=== PATIENT | female | born 1960 | race Caucasian/White ===

== ENCOUNTER 2023-01-16 14:10 | Outpatient (OUT) | payer OTHER, SELFPAY ==
[2023-01-16 15:09] LABS: Estimated Average Glucose 146 mg/dL; Glycohemoglobin A1C 6.7 % (4.5-6.2)
[2023-01-16 15:18] LABS: Hematocrit 37.6 % (36.0-48.0); Hemoglobin 11.4 g/dL (12.0-16.0); Mean Corpuscular HGB Conc 30.3 g/dL (29.9-35.2); Mean Corpuscular Hemoglobin 29.5 pg (26.7-34.0); Mean Corpuscular Volume 97.2 fL (81.0-99.0); Mean Platelet Volume 11.4 fL (9.5-13.5); Platelet Count 196 10^3/uL (150-450); Red Blood Count 3.87 10^6/uL (4.20-5.40); Red Cell Distribution Width 13.6 % (11.0-15.0)
[2023-01-16 15:43] LABS: Alanine Aminotransferase 23 U/L (14-59); Albumin Globulin Ratio 0.8; Albumin Level 3.3 g/dL (3.4-5.0); Alkaline Phosphatase 109 U/L (46-116); Aspartate Amino Transferase 23 U/L (15-37); Bilirubin Total 0.5 mg/dL (0.2-1.0); Calcium 9.3 mg/dL (8.5-10.1); Carbon Dioxide 28.1 mmol/L (21.0-32.0); Chloride 102 mmol/L (98-107); Chol HDL Ratio 4.5; Cholesterol 232 mg/dL (<=200); Estimated GFR (African America >60 (>=60); Estimated GFR (Non-African Ame >60 (>=60); Globulin 4.3 g/dL; Glucose 118 mg/dL (74-106); HDL Cholesterol 52 mg/dL (40-60); Potassium 5.1 mmol/L (3.5-5.1); Sodium 139 mmol/L (136-145); Thyroid Stimulating Hormone 1.066 uIU/mL (0.358-3.740); Total Protein 7.6 g/dL (6.4-8.2); Triglycerides 342 mg/dL (<=150); VLDL CHOLESTEROL 68.4 mg/dL
[2023-01-16 15:49] LABS: Free T4 1.04 ng/dL (0.76-1.46)
[2023-01-17 06:08] LABS: HCV Ab Non Reactive (Non Reactive); HIV Ab/p24 Ag Screen Non Reactive (Non Reactive)
== END 2023-01-16 14:11 | disposition home or self-care (01) ==
LOC: LAB 14:16
PROVIDERS: PCP Nurse Practitioner Primary Care; Visit Provider Nurse Practitioner Primary Care
DX: Z00.00 Encounter for general adult medical examination without abnormal findings (principal); Z11.59 Encounter for screening for other viral diseases; Z13.6 Encounter for screening for cardiovascular disorders; Z11.4 Encounter for screening for human immunodeficiency virus [HIV]; Z13.29 Encounter for screening for other suspected endocrine disorder
CPT/HCPCS: 36415; 80053; 80061; 83036; 84439; 84443; 85027; 86803; 87389

== ENCOUNTER 2023-03-23 10:03 | Emergency (ER) | payer OTHER, SELFPAY ==
[2023-03-23 10:07] VITALS: BP 201/98; PULSE 91; RESP 22; TEMP 36.7; O2SAT 98; BMI 43.7
--- OUTSIDE RECORDS SUMMARY | 2023-03-23 10:11 | XMS_ITS | CCD ---
Author Name Unknown Address [address] [place] [address] Organization [facility] Care Team Providers Care Bag Hanger Name Role Phone WING BASHAR M Referring Unavailable KAHALEH, BASHAR M Referring Unavailable ALTATTAN, MOHAMED Attending Unavailable EKATERINA LLANOS Referring Unavailable KAHALEH, BASHAR M Referring Unavailable KAHALEH, BASHAR M Referring Unavailable KAHALEH, BASHAR M Referring Unavailable KAHALEH, BASHAR M Referring Unavailable ALTATTAN, MOHAMED Attending Unavailable Allergies Allergy Classification Reported Allergen(s) Allergy Type Date of Onset Reaction(s) Facility (1 source) ALLERGIES NOT ON FILE; Translations: [ALLERGIES NOT ON FILE] Propensity to adverse reactions (disorder) [facility] Repository Problems Active Problems Problem Classification Problem Date Documented Da te Episodic/Chronic Gout and other crystal arthropathies (2 sources) Gout, unspecified; Translations: [Gout, unspecified] Onset: 08-05-2022 Chronic Osteoarthritis (2 sources) Secondary osteoarthritis, unspecified site; Translations: [Secondary osteoarthritis, unspecified site] Onset: 08-05-2022 Chronic Osteoporosis (2 sources) Age-related osteoporosis without current pathological fracture; Translations: [Age-related osteoporosis without current pathological fracture] Onset: 12-04-2021 Chronic Rheumatoid arthritis and related disease (4 sources) Rheumatoid arthritis with rheumatoid factor, unspecified; Translations: [Other rheumatoid arthritis with rheumatoid factor of multiple sites] Onset: 12-17-2021 Chronic Past or Other Problems Problem Classification Problem Date Documented Da te Episodic/Chronic Inflammation; infection of eye (except that caused by tuberculosis or sexually transmitteddisease) (2 sources) Unspecified iridocyclitis; Translations: [Unspecified iridocyclitis] Onset: 08-05-2022 Episodic Other bone disease and musculoskeletal deformities (2 sources) Other specified disorders of bone density and structure, unspecified site; Translations: [Other specified disorders of bone density and structure, unspecified site] Onset: 08-05-2022 Episodic Results Test Name Value Interpretation Reference Range Facil ity 36on 11-25-2022 36 Last visit 08/05/22 No Upcoming visit Last CBC/CMP 10/17/22 [facility] Refillon 11-25-2022 Refill [id number] Muna Mills samantha 1960 F Date Provider Department [place] 11/25/2022 VIDYA GARCIA [facility] Shilpa Heal No family history on file Reason for Visit and Comments: Med Refill [[id number]] [facility] Orders Onlyon 08-07-2022 Orders Only [id number] GeneMuna singh 1960 F Date [facility] Department [place] 08/07/2022 [facility] No family history on file [facility] Office Visiton 08-05-2022 Follow-up visit [id number] GeneMuna singh 1960 F Date Provider Department [place] 08/05/2022 [facility] [place] [facility] Shilpa Heal No family history on file Level of Service:69015 [place] OFFICE/OUTPATIENT ESTABLISHED LOW MDM 20-29 MIN (GC) Reason for Visit and Comments: Follow-up [[id number]] [facility] 36on 07-30-2022 36 This card writer hand attempte d to return patients sons phone call leaving a detailed voice message this afternoon. [facility] 07-26-2022 36 This card writer hand received a return phone message from patients talha Alcantar and attempted to contact him via phone this afternoon also leaving a voice message. [facility] 36on 07-24-2022 36 This card writer hand was consulted by the [facility] infusion to completed needs assessment. This card writer hand attempted to contact patient to completed needs assessment but was unable to reach patient directly on the primary number listed nor leave a voice message. This card writer hand attempted to contact patients talha Alcantar leaving a voice message with this writers return contact information. [facility] Refillon 07-10-2022 Refill [id number] Muna Mills samantha 1960 F Date Provider Department Center 07/10/2022 JOSE VIDYA [facility] Shilpa Heal No family history on file Reason for Visit and Comments: Med Refill [[id number]] Normal [facility] Infusionon 07-04-2022 Infusion [id number] Muna Mills samantha 1960 F Date Provider Department Center 07/04/2022 2283-[facility] CHAIR [address] [facility] IN[address] [facility] No family history on file Reason for Visit and Comments: OP Infusion [[id number]] Normal [facility] Letter (Out)on 06-12-2022 Letter (Out) [id number] Muna Mills samantha 1960 F Date Provider Department Center 06/12/2022 None-None [facility] AUTH MD Medical C No family history on file [facility] Infusionon 06-11-2022 Infusion [id number] Muna Mills 1960 F Date Provider Department [place] 06/11/20226-[facility] CHAIR [address] [facility] INF [facility] No family history on file Reason for Visit and Comments: OP Infusion [[id number]] [facility] Letter (Out)on 05-27-2022 Letter (Out) [id number] Muna Mills samantha 1960 F Date Provider Department Center 05/27/2022 None-None [facility] AUTH MD Medical C No family history on file [facility] PROGRESSon 03-07-2022 SARS-CoV-2 (COVID-19) RNA JESSICA+probe Ql (Unsp spec) Pt states had cold that started 02/04/22, after family member was positive for COVID, however pt did not test. Pt states she cancelled last week because she was feeling so ill, this week she does feel better but is still having dark green phlegm with a junky sounding cough. [facility] Refillon 02-10-2022 Refill [id number] Muna Mills samantha 1960 F Date Provider Department Center 02/10/2022 JOSE VIDYA [facility] Shilpa Heal No family history on file Reason for Visit and Comments: Med Refill [[id number]] [facility] Orders Onlyon 01-17-2022 Orders Only [id number] Muna Mills 1960 F Date Provider Department [place] 01/17/[address] [facility] [facility] No family history on file Normal [facility] Infusionon 01-03-2022 Infusion [id number] Muna Mills samantha 1960 F Date Provider Department [place] 01/03/2022 2285-[facility] CHAIR [address] [facility] INF [facility] No family history on file Reason for Visit and Comments: OP Infusion [[id number]] - infliximab Normal [facility] Orders Onlyon 12-25-2021 Orders Only [id number] Muna Mills 1960 F Date Provider Department [place] 12/25/2021 VIDYA GARCIA [facility] Shilpa Heal No family history on file [facility] Documentationon 12-18-2021 Documentation [id number] Muna Mills 1960 F Date Provider Department [place] 12/18/2021 MARY POON [facility] Shilpa Heal No family history on file Reason for Visit and Comments: Specialty Pharmacy Note [Other] - Rinvoq prescription Normal [facility] Orders Onlyon 12-18-2021 Orders Only [id number] Antonio 1960 F Date Provider Department [place] 12/18/[address] [facility] IN[address] [facility] No family history on file Normal [facility] Follow-Upon 12-17-2021 Follow-Up [id number] Muna Mills 1960 F Date Provider Department [place] 12/17/2021 VIDYA GARCIA [facility] Shilpa Heal No family history on file Level of Service:36162 [place] OFFICE/OUTPATIENT ESTABLISHED MOD MDM 30-39 MIN () Reason for Visit and Comments: Follow-up [[id number]] Normal [facility] C REACTIVE PROTEINon 022 CRP [Mass/Vol] 48.6 mg/L High 0.0-7.0 [facility] Comment on above: Performed By: #### 6 1405, 58371 #### [facility] [address] CBC W/DIFFon 10-17-2021 ABS IMM GRANS 0.1 10*3/uL Normal 0.0-0.2 [facility] Comment on above: Performed By: #### 5 102, 27186 ####[facility] [place] [address], [facility] ABS NEUTROPHILS 4.8 10*3/uL Normal 1.6-7.6 [facility] Comment on above: Performed By: #### 5 102, 76945 ####[facility] Basophils (Bld) [#/Vol] 0.0 10*3/uL Normal 0.0-0.2 [facility] Comment on above: Performed By: #### 5 102, 82645 ####[facility] Basophils/100 WBC (Bld) 0.5 % Normal 0.0-1.0 [facility] Comment on above: Performed By: #### 5 102, 12482 ####[facility] [place] [address], [facility] Eosinophils (Bld) [#/Vol] 0.4 10*3/uL Normal 0.0-0.5 [facility] Comment on above: Performed By: #### 5 102, 57094 ####[facility] [place] [address], [facility] Eosinophils/100 WBC (Bld) 4.6 % Normal 0.0-6.0 [facility] Comment on above: Performed By: #### 5 102, 74391 ####[facility] Erythrocyte distribution width (RBC) [Ratio] 12.4 % Normal 11.5-15.0 [facility] Comment on above: Performed By: #### 5 102, 68811 ####[facility]3000 [facility].[address] Hematocrit (Bld) [Volume fraction] 36.7 % Normal 36.0-45.0 [facility] Comment on above: Performed By: #### 5 102, 46169 ####[facility]3000 [facility].[address] Hemoglobin (Bld) [Mass/Vol] 11.6 g/dL Low 12.0-15.0 [facility] Comment on above: Performed By: #### 5 102, 05246 ####[facility]3000 [facility].[address] IMMATURE GRANS 0.7 % Normal 0.0-1.0 [facility] Comment on above: Performed By: #### 102, 30160 ####[place] [address] [facility].[address] Lymphocytes (Bld) [#/Vol] 2.1 10*3/uL Normal 1.2-4.0 [facility] Comment on above: Performed By: #### 5 102, 54396 ####[place] [address] [facility].[address] Lymphocytes/100 WBC (Bld) 26.9 % Normal 20.0-45.0 [facility] Comment on above: Performed By: #### 102, 75406 ####[facility]3000 [facility].[address] MCH (RBC) [Entitic mass] 31.2 pg Normal 27.0-33.0 [facility] Comment on above: Performed By: #### 102, 02129 ####[facility]3000 [facility] [place] [address], [facility] MCHC (RBC) [Mass/Vol] 31.6 g/dL Low 32.0-35.0 [facility] Comment on above: Performed By: #### 5 102, 48782 ####[facility]3000 [facility].[address] MCV (RBC) [Entitic vol] 98.7 fL High 82.0-98.0 [facility] Comment on above: Performed By: #### 5 102, 90990 ####[facility]3000 [facility].[address] Monocytes (Bld) [#/Vol] 0.4 10*3/uL Normal 0.1-1.0 [facility] Comment on above: Performed By: #### 5 102, 28579 ####[facility]3000 [facility].[address] MONOS 4.6 % Low 5.0-12.0 [facility] Comment on above: Performed By: #### 5 102, 37849 ####[facility]3000 [facility].[address] Neutrophils/100 WBC (Bld) 62.7 % Normal 40.0-72.0 [facility] Comment on above: Performed By: #### 5 102, 64754 ####[facility]3000 [facility].[address] Nucleated RBC/100 WBC (Bld) [Ratio] 0 % Normal 0-0 [facility] Comment on above: Performed By: #### 5 102, 34847 ####[facility]3000 [facility] [place] [address], [facility] PLAT CNT 436 10*3/uL High 150-400 [facility] Comment on above: Performed By: #### 5 102, 28585 ####[facility]3000 [facility] [place] [address], [facility] RBC (Bld) [#/Vol] 3.72 10*6/uL Low 3.80-5.00 [facility] Comment on above: Performed By: #### 5 0103, 92952 ####[facility]3000 [facility].[place] [id number], [facility] WBC (Bld) [#/Vol] 7.63 10*3/uL Normal 4.00-10.60 [facility] Comment on above: Performed By: #### 5 0103, 12488 ####[facility]3000 [facility] [place] [address], [facility] COMP METABOLIC PANELon 10-17 Albumin [Mass/Vol] 3.4 g/dL Low 3.5-5.7 [facility] Comment on above: Performed By: #### 0 0121, 98156 #### [facility] [address] [facility] [place] [place] [address], [facility] ALKALINE PHOSPH 91 IU/L Normal 34-104 [facility] Comment on above: Performed By: #### 0 0121, 90855 #### [facility] 3000 [facility]. [address] ALT [Catalytic activity/Vol] 9 U/L Normal 7-52 [facility] Comment on above: Performed By: #### 0 0121, 14380 #### [facility] [address] [facility] [place] [address], [facility] AST [Catalytic activity/Vol] 19 U/L Normal 13-39 [facility] Comment on above: Performed By: #### 0 0121, 78679 #### [facility] [address] [facility] [place] [id number], [facility] Bilirubin [Mass/Vol] 0.4 mg/dL Normal 0.3-1.0 [facility] Comment on above: Performed By: #### 0 0121, 03088 #### [facility] [address] [facility] [place] [address], [facility] Calcium [Mass/Vol] 9.1 mg/dL Normal 8.6-10.3 [facility] Comment on above: Performed By: #### 0 0121, 45094 #### [facility] [address] [place] [address], [place] Chloride [Moles/Vol] 108 mmol/L High 98-107 [facility] Comment on above: Performed By: #### 0 0121, 57064 #### [facility] [address] [place] [address], [place] CO2 [Moles/Vol] 22 mmol/L Normal 21-31 [facility] Comment on above: Performed By: #### 0 0121, 08711 #### [facility] [address] [place] [address], [place] Creatinine [Mass/Vol] 0.63 mg/dL Normal 0.60-1.20 [facility] Comment on above: Performed By: #### 0 0121, 44069 #### [facility] [address] [place] [address], [place] GFR/1.73 sq M.predicted among non-blacks MDRD (S/P/Bld) [Vol rate/Area] mL/min/{1.73_m2} Normal >60 [facility] Comment on above: Result Comment: [facility]'s estimated glomerular filtration rate (eGFR) will no longer include consideration of race in its calculation. The National Kid[employer] Foundation's eGFR Task Force developed new recommendations for the estimation of the glomerular filtration rate in the [place] They recommend immediate implementation of the new equation refit without the race variable in all laboratories because the calculation does not include race. In addition to not including race in the calculation and reporting, it included diversity in its development, and has acceptable performance characteristics and potential consequences that do not disproportionately affect any one group of individuals. Performed By: #### 0 0121, 03077 #### [facility] [address] [place] [address], [place] Glucose [Mass/Vol] 87 mg/dL Normal 70-100 [facility] Comment on above: Performed By: #### 0 0121, 07750 #### [facility] [address] [place] [address], [facility] Potassium [Moles/Vol] 4.8 mmol/L Normal 3.5-5.1 [facility] Comment on above: Performed By: #### 0 0121, 31176 #### [facility] [address] [place] [address], [facility] Protein [Mass/Vol] 6.5 g/dL Normal 6.0-8.3 [facility] Comment on above: Performed By: #### 0 0121, 21512 #### [facility] [address] [place] [address], [facility] Sodium [Moles/Vol] 139 mmol/L Normal 136-145 [facility] Comment on above: Performed By: #### 0 0121, 63109 #### [facility] [address] [place] [address], [facility] Urea nitrogen [Mass/Vol] 19 mg/dL Normal 7-25 [facility] Comment on above: Performed By: #### 0 0121, 11346 #### [facility] [address] [facility] [place] [id number], [facility] [place]CL[place] [address]if 10-17-2021 CYCLIC CIT PEP 194 Units High 0-19 [facility] Comment on above: Result Comment: INTE RPRETIVE INFORMATION: Cyclic Citrullinated Peptide Antibody, IgG 19 Units or less ................... Negative 20-39 Units ........................ Weak Positive 40-59 Units ........................ Moderate Positive 60 Units or greater ................ Strong Positive Anti-cyclic citrullinated peptide (anti-CCP), IgG antibodies are present in about 69-83 percent of patients with rheumatoid arthritis (RA) and have specificities of 93-95 percent. These autoantibodies may be present in the preclinical phase of disease, are associated with future RA development, and may predict radiographic joint destruction. Patients with weak positive results should be monitored and testing repeated. Performed By: [facility] [address] [place] [address] [place] Reamer: Sunny Deluna MD, PhD FOOT LEFT 3 [facility] 10-17-2021 FOOT LEFT 3 [facility] Department of Radiology [address] [place] [address] ===== Patient Name: TIGIST MILLS : 1960 Sex: F Age: Race: White Pt. Location: [facility] Patient Status: Ordered Date: 10/17/2021 10:15:00 AM Completed Date: 10/17/2021 10:24 AM Requesting Provider: VIDYA MENDEZ Attending Provider: Report Copy To: Signs & Symptoms: M25.50 Pain in unspecified joint I10 History: [place] Comments: Evaluate Exam: FOOT LEFT 3 [facility] ===== FOOT LEFT 3 [facility] 10/17/2021 10:24 AM CLINICAL INDICATIONS: M25.50 Pain in unspecified joint I10 TECHNOLOGIST COMMENTS: pain in bilateral hands, trouble fingers, pain and swelling in bilateral feet QUESTION FOR THE RADIOLOGIST: Evaluate PROTOCOL: AP,Lateral and Oblique views were obtained. COMPARISON: None FINDINGS: No acute fracture or dislocation. Marked calcaneocuboid joint space narrowing as well as diffuse joint space narrowing throughout the hindfoot and midfoot. Joint spaces are also noted of the first through fourth metacarpophalangeal joints. No discrete osteophytes. No discrete bone erosion. Calcaneal enthesophytes noted at plantar fascia and Achilles tendon attachment sites. Osteopenia. IMPRESSION: Diffuse joint space narrowing throughout the foot, nonspecific but likely sequela of rheumatoid arthritis given the patient's history. Approved by:Saturnino Yuanoon10/17/2021 11:15 AM. I, David Wills,have reviewed the image(s) and agree with the findings in this report. Electronically signed: David Wills. Transcribed by: [email or web address], User Resident: SATURNINO TS Electronically Signed by: DAVID WILLS @ 10/17/2021 12:59 PM I personally read this/these film(s) with this resident Normal [facility] Comment on above: Order Comment: Evalu ate FOOT RIGHT 3 [facility] 2 FOOT RIGHT 3 [facility] Department of Radiology [address] [place] [id number] ===== Patient Name: TIGIST MILLS : 1960 Sex: F Age: Race: White Pt. Location: [facility] Patient Status: O Ordered Date: 10/17/2021 10:20:00 AM Completed Date: 10/17/2021 10:24 AM Requesting Provider: VIDYA MENDEZ Attending Provider: VIDYA MENDEZ Report Copy To: Signs & Symptoms: M25.50 Pain in unspecified joint I10 History: [place] Comments: Evaluate Exam: FOOT RIGHT 3 [facility] ===== FOOT RIGHT 3 S 10/17/2021 10:24 AM CLINICAL INDICATIONS: Right foot pain TECHNOLOGIST COMMENTS: pain in bilateral hands, trouble fingers, pain and swelling in bilateral feet QUESTION FOR THE RADIOLOGIST: Evaluate PROTOCOL: AP,Lateral and Oblique views were obtained. COMPARISON: None FINDINGS: No acute fracture or dislocation. Diffuse joint space narrowing of the mid and hindfoot most prominent at the talonavicular and calcaneocuboid joints. There is also prominent joint space narrowing of the metacarpal phalangeal joints. No discrete bone erosion. Calcaneal enthesophytes noted Achilles tendon and plantar fascia attachment sites. Osteopenia. IMPRESSION: Diffuse joint space narrowing compatible with rheumatoid arthritis. Approved by:Saturnino Yuanoon10/17/2021 10:58 AM. I, David Wills,have reviewed the image(s) and agree with the findings in this report. Electronically signed: David Wills. Transcribed by: [email or web address], User Resident: SATURNINO ST Electronically Signed by: DAVID WILLS @ 10/17/2021 12:58 PM I personally read this/these film(s) with this resident Normal [facility] Comment on above: Order Comment: Evalu ate HAND LEFT 3 [facility] 10-17-2021 HAND LEFT 3 S [facility] Department of Radiology [address] [place] [id number] ===== Patient Name: TIGIST MILLS : 1960 Sex: F Age: Race: White Pt. Location: [facility] Patient Status: O Ordered Date: 10/17/2021 10:15:00 AM Completed Date: 10/17/2021 10:24 AM Requesting Provider: VIDYA MENDEZ Attending Provider: VIDYA MENDEZ Report Copy To: Signs & Symptoms: M05.9 Rheumatoid arthritis with rheumatoid factor, unspecified I10 History: [place] Comments: Evaluate Exam: HAND LEFT 3 [facility] ===== HAND LEFT 3 [facility] 10/17/2021 10:24 AM CLINICAL INDICATIONS: Left hand pain TECHNOLOGIST COMMENTS: pain in bilateral hands, trouble fingers, pain and swelling in bilateral feet QUESTION FOR THE RADIOLOGIST: Evaluate PROTOCOL: AP,Lateral and Oblique views were obtained. COMPARISON: None FINDINGS: Erosive and changes seen throughout left hand and wrist. Remodeling of the radiocarpal joint with dorsal angulation of the distal radius. There is chronic flattening of the lunate with probable volar tilting of the lunate difficult to determine on the lateral view due to overlapping structures and obliquity. Severe loss of joint space throughout the carpal joint spaces. Cystic changes versus bone erosions throughout the carpal bones. Moderate first carpal metacarpal joint osteoarthritis. Severe joint space narrowing of the metacarpophalangeal joints with pulmonary subluxation of the proximal phalanges relative the metacarpals as well as subluxation of the first metacarpal phalangeal joint. Loss of joint space seen at proximal interphalangeal joints. Persistent extension at the second through fifth proximal interphalangeal joints. Soft tissue swelling and second and third digits. Osteopenia. IMPRESSION: Findings detailed above consistent with rheumatoid arthritis. Approved by:Saturnino Yuanoon10/17/2021 11:14 AM. I, David Wills,have reviewed the image(s) and agree with the findings in this report. Electronically signed: David Wills. Transcribed by: [email or web address], User Resident: SATURNINO ST Electronically Signed by: DAVID WILLS @ 10/17/2021 12:52 PM I personally read this/these film(s) with this resident Normal [facility] Comment on above: Order Comment: Evalu ate HAND RIGHT 3 Son 2 HAND RIGHT 3 S [facility] Department of Radiology [address] [place] [id number] ===== Patient Name: TIGIST MILLS : 1960 Sex: F Age: Race: White Pt. Location: [facility] Patient Status: O Ordered Date: 10/17/2021 10:15:00 AM Completed Date: 10/17/2021 10:24 AM Requesting Provider: VIDYA MENDEZ Attending Provider: VIDYA MENDEZ Report Copy To: Signs & Symptoms: M05.9 Rheumatoid arthritis with rheumatoid factor, unspecified I10 History: Bozena Comments: Evaluate Exam: HAND RIGHT 3 [facility] ===== HAND RIGHT 3 S 10/17/2021 10:24 AM CLINICAL INDICATIONS: Right hand pain TECHNOLOGIST COMMENTS: pain in bilateral hands, trouble fingers, pain and swelling in bilateral feet QUESTION FOR THE RADIOLOGIST: Evaluate PROTOCOL: AP,Lateral and Oblique views were obtained. COMPARISON: Left hand radiographs from the same day. FINDINGS: Erosive and degenerative changes are seen throughout the right wrist as well as first through third metacarpal bones. There are erosive changes seen at proximal interphalangeal joints. Erosive changes seen at base of proximal phalanx of right thumb. There are erosive and degenerative changes seen at radiocarpal and ulnocarpal joints as well as carpometacarpal joints. There appears to be fusion of the capitate and hamate, difficult to assess due to remodeling, joint space loss, an overlying osseous structures at the level of the wrist. There is collapse of joint spaces seen in all joints of the carpal bones. There is volar marked subluxation at the second and third metacarpophalangeal joints as well as joint space narrowing with subluxation at the fourth and fifth metacarpal phalangeal joints. Soft tissue swelling most prominent in the second third digits. Osteopenia. IMPRESSION: Findings detailed above consistent with rheumatoid arthritis. Approved by:Saturnino Romero10/17/2021 11:14 AM. I, David Wills,have reviewed the image(s) and agree with the findings in this report. Electronically signed: David Wills. Transcribed by: [email or web address], User Resident: SATURNINO ST Electronically Signed by: DAVID WILLS @ 10/17/2021 12:55 PM I personally read this/these film(s) with this resident Normal [facility] Comment on above: Order Comment: Evalu ate HEPATITIS B CORE ANTIBODYon 10-17-2021 HEP B CORE AB Non-Reactive Normal NONREACTIVE [facility] Comment on above: Performed By: #### 3 1398, [id number], [id number] #### [facility] [address] [place] [address], [facility] HEPATITIS B SURFACE ANTIBODY QUANTon 10-17-2021 HEP B SURF AB 0.73 mIU/ml Normal [facility] Comment on above: Result Comment: INTE RPRETATION: NONREACTIVE<8.00 mIU/mL INDETERMINATE8.00 - 12.00 mIU/mL REACTIVE>12 mIU/mL Performed By: #### 3 1398, 00063, [id number] #### [facility] [address] [facility] [place] [address], [facility] HEPATITIS B SURFACE ANTIGEN QUALon 10-17-2021 HEP B SURF AG QUAL Non-Reactive Normal NONREACTIVE [facility] Comment on above: Performed By: #### 3 1398, [id number], [id number] #### [facility] [address] [place] [address], [facility] RHEUMATOID FACTOR SERUMon RA 279 IU/mL High 0-20 [facility] Comment on above: Performed By: #### 6 1405, [id number] #### [facility] [address] [place] [address], [facility] SEDIMENTATION RATEon 022 SED RATE 51 mm/hr High 0-20 [facility] Comment on above: Performed By: #### 5 0103, [id number] ####[facility] [facility] [place] [address], [facility] TB QUANTIFERON PLUSon 2021 MITOGEN MINUS NIL >10.00 Normal [facility] Comment on above: Performed By: #### 3 1592 #### [facility] [address] NIL 0.09 IU/mL Normal [facility] Comment on above: Performed By: #### 3 1592 #### [facility] [address] [facility] [address] TB QUANTIFERON Negative Normal NEGATIVE [facility] Comment on above: Result Comment: Riki tiferon TB Gold Interpretation (IU/mL): NEGATIVE: M. tuberculosis infection not likely. Nil: <=8.0 TB1 Antigen minus Nil (ZY5PO-HEP): <0.35 OR >=0.35; and <25% of Nil value. TB2 Antigen minus Nil (FU3OU-ZND): <0.35 OR >=0.35; and <25% of Nil value. Mitogen minus Nil (NOLVIA-NIL): >=0.50 NOTE: Diagnosing or excluding tuberculosis disease, and assessing the probability of LTBI, requires a combination of epidemiological, historical, medical, and diagnostic findings that should be taken into account when interpreting QuantiFERON (TM)-TB Gold results. See general guidance on the diagnosis and treatment of TB disease and LTBI (https://www.cdc.gov/tb/publications/guidlines/default.htm Performed By: #### 3 1592 #### [facility] [address] [place] [address], [place] TB1 AG 0.07 IU/mL Normal [facility] Comment on above: Performed By: #### 3 1592 #### [facility] [address] [place] [address], [place] TB1 AG MINUS NIL -0.02 IU/mL Normal [facility] Comment on above: Performed By: #### 3 1592 #### [facility] [address] [place] [address], [place] TB2 AG 0.06 IU/mL Normal [facility] Comment on above: Performed By: #### 3 1592 #### [facility] [address] [place] [address], [place] TB2 AG MINUS NIL -0.03 IU/mL Normal [facility] Comment on above: Performed By: #### 3 1592 #### [facility] [address] [place] [address], [facility] URIC ACID BLOODon 10-17-2021 Urate [Mass/Vol] 6.7 mg/dL High 2.3-6.6 [facility] Comment on above: Performed By: #### 0 0121, 08127 #### [facility] [address] [facility] [place] [address], [facility] Encounters Encounter Date Encounter Type Care Provider Facility Start: 08-16-2022 End: 08-16-2022 ambulatory CYNDIE Saab [facility] Start: 08-05-2022 End: 08-05-2022 ambulatory VIDYA MENDEZ [facility] Start: 07-04-2022 End: 07-04-2022 ambulatory CYNDIE Saab [facility] Start: 06-11-2022 End: 06-11-2022 ambulatory CYNDIE Saab [facility] Start: 03-07-2022 End: 03-07-2022 [facility] Start: 02-01-2022 End: 02-01-2022 ambulatory CYNDIE [facility] Start: 01-03-2022 End: 01-03-2022 ambulatory CYNDIE Saab [facility] Start: 12-17-2021 End: 12-17-2021 ambulatory VIDYA TOROTong [facility] Start: 12-04-2021 End: 12-05-2021 ambulatory EKATERINA LLANOS [facility] Payers Date Payer Category Payer Medicaid [id number] Progress note 08-05-2022 Note Date & Type Note Facility 08-05-2022 Note -------- Attestation signed by Cyndie August MD at 08/06/2022 8:31 AM I personally saw and examined the patient on the same date of service as resident/fellow . I discussed the findings and therapeutic plan with the resident/fellow . I agree with the documentation, except for any edits/updates below. Teaching Physician's Revisions: -------- Subjective Patient ID: Tigist Mills is a 62 y.o. female who presents for Follow-up. HPI 10/17/2021: 61 year old female with a pmh of RA with Nodules and Uveitis, Gout, OA, and Osteoperosis who presents a new patient to establish care. Just came from [place], has long standing history of seropositive erosive RA. Failed MTX and Xeljanz. Currently not taking anything. Currently having significant swelling, erythema and pain to bilateral wrists, ankle, MTP's, MCP and PIP joints. Morning stiffness > 2 hrs. Also reports to have had history of right eye pain, redness and blurry vision and was diagnosed with uveitis, treated with eye steroid injections. Denies any fevers, chills, cough, sob, dry eyes/mouth, photosensitive sun rash, mouth ulcers, Raynaud's, hx of blood clots/miscarriages or diverticulitis. 12/17/2021: Pt with seropositive nodular erosive RA here for follow-up visit. Since last visit, pt was denied Rinvoq. Has since been just taking daily Prednisone. Pt has extreme fear of needles. Continues to have significant joint pain and swelling. 08/05/2022: Pt here for follow-up visit. Has been on Remicade infusions x 2 months, doing great. Significant improvement in joint pain/swelling and stiffness. Tolerating infusions, compliant. Review of Systems Constitutional: Positive for fatigue. HENT: Negative. Eyes: Negative. Respiratory: Negative. Cardiovascular: Negative. Musculoskeletal: Positive for arthralgias, back pain, gait problem, joint swelling and myalgias. Skin: Negative for rash. Hematological: Negative. Objective Visit Vitals BP 126/86 (BP Location: Left wrist, Patient Position: Sitting) Pulse 98 Physical Exam HENT: Head: Normocephalic and atraumatic. Mouth/Throat: Pharynx: Oropharynx is clear. Eyes: Extraocular Movements: Extraocular movements intact. Pupils: Pupils are equal, round, and reactive to light. Cardiovascular: Rate and Rhythm: Normal rate and regular rhythm. Pulmonary: Effort: Pulmonary effort is normal. Breath sounds: Normal breath sounds. Abdominal: General: Abdomen is flat. Palpations: Abdomen is soft. Musculoskeletal: General: Swelling, tenderness and deformity present. Cervical back: No tenderness. Comments: Musculoskeletal: B/L swan neck deformity, ulnar deviation of MCP joints, Boutenerrie deformity of thumbs, loss of interosseus and carpal muscle. Rheumatoid nodules bilateral elbows. + piano sign. Diffuse swelling and pain to MCP and PIP joints. Skin: Findings: No bruising or rash. Neurological: Mental Status: She is alert and oriented to person, place, and time. Psychiatric: Mood and Affect: Mood normal. Assessment/Plan Diagnoses and all orders for this visit: Seropositive rheumatoid arthritis (CMS/HCC) Uveitis Gouty arthropathy Secondary osteoarthritis Osteopenia, unspecified location 61 year old female with a pmh of RA with Nodules and Uveitis, Gout, OA, and Osteoperosis who presents a new patient to establish care. Just came from [place], has long standing history of seropositive erosive RA. Failed MTX and Xeljanz. # Nodular Seropositive Erosive RA - clinical manifestations include B/L swan neck deformity, ulnar deviation of MCP joints, Boutenerrie deformity of thumbs, loss of interosseus and carpal muscle. Rheumatoid nodules bilateral elbows. + piano sign. + Diffuse swelling and pain to MCP and PIP joints. - failed MTX and Xeljanz (caused fatty liver) - RA associated Uveitis treated with steroid ocular injections - Bedside MSK U/S showing diffuse erosive joint disease with strong positive doppler signals - CCP 194, RF 279, ESR 51, CRP 48.6 and UA 6.7 - X-rays showing erosive disease P: - doing great on Remicade infusions x 2 months - cont # Hx of RA Uveitis - treatment plan as above # Hx of Gout - prior history of podagra, last flare-up many years ago - UA 6.7 # Secondary Osteoarthritis # Osteopenia based on DEXA Scan. Start Calcium and Vit D RTC in 3 Months Diagnosis Plan 1. Seropositive rheumatoid arthritis (CMS/HCC) 2. Uveitis 3. Gouty arthropathy 4. Secondary osteoarthritis 5. Osteopenia, unspecified location No orders of the defined types were placed in this encounter. No results found for this or any previous visit (from the past 36 hour(s)). No follow-ups on file. [facility] Progress note 03-07-2022 Note Date & Type Note Facility 03-07-2022 Note D/t ruby engineer louann luz spoke with Dr. August to determine if we should proceed with treatment today or not. Per Dr. August we should hold treatment today and resume once pt's cough/green phlegm clears up. Pt informed of this decision and told to call office when she is feeling better and her phlegm clears up. No interventions performed- assessment and vitals only. [facility] Progress note 01-03-2022 Note Date & Type Note Facility 01-03-2022 Note Pt here for 1st infl iximab abda infusion. Pt was oriented to unit and procedure was explained to pt. Pt was very nervous and anxious about treatment today and also verbalized that she has a phobia of needles. Reassurance given and pt appeared to be more relaxed. Written information regarding renflexis and possible side effects given and discussed with pt. Questions were answered and pt verbalized understanding. Pt denied recent fever and or infection and is not taking any antibiotics at this time. Comfort measures provided and IV established to right antecub without difficulty. Benadryl and tylenol given as ordered. Nurse also noticed bandaid on pt's right ear lobe and noted a small sore(approx 1 cm). It had a scab and no redness or swelling was noted. No purulent drainage noted but bandaid had a scant amt clear yellow drainage. Pt reports she has had it for few months and was sent to terminal operator but has not gone because they do not take her insurance. Message sent to Dr. August for ok to treat. Pt also stated that Dr. Mendez had seen the sore when she saw him for followup on 12/18/21 but didn't seem concerned at that time. Dr. August responded and advised OK to continue with treatment today. Infliximab ABDA 300 mg titrated over 2 hours. Pt did well throughout infusion without adverse reactions. IV removed when infusion complete and pressure dressing applied to site. Pt discharged per wheelchair with her son without complaints, Pt encouraged to keep wound on right earlobe clean and dry and to call her PCP for evaluation if sx worsen. Pt verbalized understanding. [facility] Progress note 12-18-2021 Note Date & Type Note Facility 12-18-2021 Note 10/17/2021: [facility]: Dr Vidya Mendez, Rheumatology Tigist Mills is a 61 year-old female with PMH of RA with Nodules and Uveitis, Gout, OA, and Osteoperosis. PharmD consulted for evaluation of Rinvoq ER 15mg for treatment of RA. Previous medications tried and failed (with duration/ dates): MTX, Xeljanz (unspecified dates) Drug-drug interactions: none Renal/hepatic adjusted medications: none Vitals: Ht 154 cm, Wt 86 kg, BMI 37.3, BP 142/82, HR 98 ? Pertinent labs: CMP: normal except high Cl, low albumin (10/17/2021) CBC: normal except low RBC, low Hgb, high MCV, low MCHC, high plt, low monos (10/17/2021) TB: negative (10/17/2021) Hep B: negative (10/17/2021) Lipid panel: high triglycerides (09/20/21) ? Labs are WNL and TB and Hep B are negative, trial and failure of MTX and Xeljanz, patient appropriate candidate for medication. ? Follow-up: PharmD to contact patient for introductory call and additionally when there is updated information from the insurance. Will advise patient to call back with questions or concerns. Suzie Peng, Slicing Machine Feeder Gianna Blackburn, KuldeepD, BCACP MD [facility] [phone] 11/01/2021: PA denied stating that the patient needs to try and fail Humira, Enbrel, or Otezla. 12/18/21 Pharmacy has been waiting to see if any other specialty medications will be tried. Patient had appointment yesterday with Dr. Mendez. It appears patient will continue arava and start Remicade infusions. Since Remicade does not go through pharmacy, we will no longer continue to follow up. Mary Joseph, KuldeepD, [facility] Outpatient Clinical Pharmacist MD [phone] 12/18/21 11:54 AM [facility] Progress note 12-17-2021 Note Date & Type Note Facility 12-17-2021 Note -------- Attestation signed by Kaiser August MD at 12/17/2021 8:30 PM I personally saw and examined the patient on the same date of service as resident/fellow . I discussed the findings and therapeutic plan with the resident/fellow . I agree with the documentation, except for any edits/updates below. Teaching Physician's Revisions: -------- Subjective Patient ID: Tigist Mills is a 61 y.o. female who presents for Follow-up. HPI 10/17/2021: 61 year old female with a pmh of RA with Nodules and Uveitis, Gout, OA, and Osteoperosis who presents a new patient to establish care. Just came from [place], has long standing history of seropositive erosive RA. Failed MTX and Xeljanz. Currently not taking anything. Currently having significant swelling, erythema and pain to bilateral wrists, ankle, MTP's, MCP and PIP joints. Morning stiffness > 2 hrs. Also reports to have had history of right eye pain, redness and blurry vision and was diagnosed with uveitis, treated with eye steroid injections. Denies any fevers, chills, cough, sob, dry eyes/mouth, photosensitive sun rash, mouth ulcers, Raynaud's, hx of blood clots/miscarriages or diverticulitis. 12/17/2021: Pt with seropositive nodular erosive RA here for follow-up visit. Since last visit, pt was denied Rinvoq. Has since been just taking daily Prednisone. Pt has extreme fear of needles. Continues to have significant joint pain and swelling. Review of Systems Constitutional: Positive for fatigue. HENT: Negative. Eyes: Negative. Respiratory: Negative. Cardiovascular: Negative. Musculoskeletal: Positive for arthralgias, back pain, gait problem, joint swelling and myalgias. Skin: Negative for rash. Hematological: Negative. Objective Visit Vitals BP 148/89 (BP Location: Left arm, Patient Position: Sitting) Pulse 91 Physical Exam HENT: Head: Normocephalic and atraumatic. Mouth/Throat: Pharynx: Oropharynx is clear. Eyes: Extraocular Movements: Extraocular movements intact. Pupils: Pupils are equal, round, and reactive to light. Cardiovascular: Rate and Rhythm: Normal rate and regular rhythm. Pulmonary: Effort: Pulmonary effort is normal. Breath sounds: Normal breath sounds. Abdominal: General: Abdomen is flat. Palpations: Abdomen is soft. Musculoskeletal: General: Swelling, tenderness and deformity present. Cervical back: No tenderness. Comments: Musculoskeletal: B/L swan neck deformity, ulnar deviation of MCP joints, Boutenerrie deformity of thumbs, loss of interosseus and carpal muscle. Rheumatoid nodules bilateral elbows. + piano sign. Diffuse swelling and pain to MCP and PIP joints. Skin: Findings: No bruising or rash. Neurological: Mental Status: She is alert and oriented to person, place, and time. Psychiatric: Mood and Affect: Mood normal. Assessment/Plan Diagnoses and all orders for this visit: Seropositive rheumatoid arthritis (CMS/HCC) - leflunomide (Arava) 20 mg tablet; Take 1 tablet (20 mg) by mouth in the morning. Uveitis Gouty arthropathy Secondary osteoarthritis Osteopenia, unspecified location - calcium carbonate 600 mg calcium (1,500 mg) tablet; Take 1 tablet (600 mg) by mouth with breakfast and with evening meal. 61 year old female with a pmh of RA with Nodules and Uveitis, Gout, OA, and Osteoperosis who presents a new patient to establish care. Just came from [place], has long standing history of seropositive erosive RA. Failed MTX and Xeljanz. # Nodular Seropositive Erosive RA - clinical manifestations include B/L swan neck deformity, ulnar deviation of MCP joints, Boutenerrie deformity of thumbs, loss of interosseus and carpal muscle. Rheumatoid nodules bilateral elbows. + piano sign. + Diffuse swelling and pain to MCP and PIP joints. - failed MTX and Xeljanz (caused fatty liver) - RA associated Uveitis treated with steroid ocular injections - Bedside MSK U/S showing diffuse erosive joint disease with strong positive doppler signals - CCP 194, RF 279, ESR 51, CRP 48.6 and UA 6.7 - X-rays showing erosive disease P: - insurance declined Rinvoq, will start patient on Arava and Remicade infusions - cont Prednisone prn for flare-ups # Hx of RA Uveitis - treatment plan as above # Hx of Gout - prior history of podagra, last flare-up many years ago - UA 6.7 # Secondary Osteoarthritis # Osteopenia based on DEXA Scan. Start Calcium and Vit D RTC in [address] Mendez and Dr. August Diagnosis Plan 1. Seropositive rheumatoid arthritis ([facility]) leflunomide (Arava) 20 mg tablet 2. Uveitis 3. Gouty arthropathy 4. Secondary osteoarthritis 5. Osteopenia, unspecified location calcium carbonate 600 mg calcium (1,500 mg) tablet No orders of the defined types were placed in this encounter. No r (more content not included)... [facility] Summary Purpose Family History No Family History Records FoundNo Family History Records Found Advance Directives No Advanced Directives Records FoundNo Advanced Directives Records Found Additional Source Comments INFORMATION SOURCE (unrecogn ized section and content) DATE CREATED AUTHOR 10/27/2021 [facility] DATE CREATED AUTHOR AUTHOR'S ORGANIZ ATION 12/02/2022 [facility] FOR RECORDS PERTAINING TO PATIENTS WHO ARE OR HAVE BEEN ENROLLED IN A CHEMICAL DEPENDENCY/SUBSTANCEABUSE PROGRAM, SOME INFORMATION MAY BE OMITTED. This clinical summary was aggregated from multiple sources. Caution should be exercised in using it in the provision of clinical care. This summary normalizes information from multiple sources, and as a consequence, information in this document may materially change the coding, format and clinical context of patient data. In addition, data may be omitted in some cases. CLINICAL DECISIONS SHOULD BE BASED ON THE PRIMARY CLINICAL RECORDS. [employer] provides no warranty or guarantee of the accuracy or completeness of information in this document.
--- NOTE | 2023-03-23 10:26 | ED.FEMALEGU1 ---
HPI - Female Genitourinary General Chief complaint: Urogenital-Female Stated complaint: BACK PAIN Time Seen by Provider: 03/23/23 10:23 Source: patient Mode of arrival: Wheelchair Limitations: no limitations History of Present Illness HPI Narrative: 63-year-old female presents for back pain and urinary frequency and dysuria. No injury. She's had this intermittently for a few days. The pain doesn't seem to radiate. Related Data Previous Rx's Medication Instructions Recorded acetaminophen 300 mg-codeine 30 mg 1 tab PO Q6H PRN pain 5 days #20 03/23/23 tablet tabs Allergies Allergy/AdvReac Type Severity Reaction Status Date / Time No Known Drug Allergies Allergy Verified 03/23/23 10:20 Review of Systems ROS Narrative A ten point review of systems is negative except as noted above. PFSH PFSH Social History Smoking status: Former smoker Exam Narrative Exam Narrative: Nurses note and vital signs reviewed and patient is not hypoxic. General: The patient appears uncomfortable. Skin: Warm, dry, no pallor noted. There is no rash noted. Head: Normocephalic, atraumatic Eye: Normal conjunctiva, no drainage Ears, Nose, Mouth, and Throat: oral mucosa is moist. Nares patent. Cardiovascular: Regular Rate and Rhythm Respiratory: Patient is in no distress, no accessory muscle use, lungs are clear to auscultation, no wheezing, rales or rhonchi Back: non-tender, no CVA tenderness bilaterally to percussion. GI: soft and nontender Musculoskeletal: The patient has no evidence of calf tenderness, no pitting edema, symmetrical pulses noted bilaterally Neurological: A&O, normal speech Psychiatric: Cooperative Constitutional Vital Signs, click to edit/add: Last Vital Signs Temp 98.1 F 03/23/23 10:07 Pulse 91 H 03/23/23 10:07 Resp 22 03/23/23 10:07 BP 201/98 H 03/23/23 10:07 Pulse Ox 98 03/23/23 10:07 O2 Del Method Room Air 03/23/23 10:07 Course Vital Signs Vital signs: Vital Signs Temperature 98.1 F 03/23/23 10:07 Pulse Rate 91 H 03/23/23 10:07 Respiratory Rate 22 03/23/23 10:07 Blood Pressure 201/98 H 03/23/23 10:07 Pulse Oximetry 98 01/21/24 10:07 Oxygen Delivery Method Room Air 03/23/23 10:07 Temperature 98.1 F 03/23/23 10:07 Pulse Rate 91 H 03/23/23 10:07 Respiratory Rate 22 03/23/23 10:07 Blood Pressure 201/98 H 03/23/23 10:07 Pulse Oximetry 98 03/23/23 10:07 Oxygen Delivery Method Room Air 03/23/23 10:07 MDM - Female Genitourinary MDM Narrative Medical decision making narrative: her workup is negative. No evidence of urinary tract infection and clinically I do not suspect kidney stone. One work is essentially normal except for elevated potassium. She was given Kayexalate here and will have it rechecked by her doctor. Lumbar x-rays show no acute findings, degenerative changes present. She'll be treated symptomatically. Treatment diagnosis and follow-up were discussed with the patient. Differential Diagnosis Differential diagnosis: Likely urinary tract infection and other (kidney stone, muscle strain, compression fracture) Lab Data Attestation: I reviewed the patient's lab results. Labs: Lab Results 03/23/23 03/23/23 03/23/23 Range/Units 10:25 10:30 11:43 WBC 11.6 H (4.0-11.0) 10^3/uL RBC 4.02 L (4.20-5.40) 10^6/uL Hgb 12.2 (12.0-16.0) g/dL Hct 39.6 (36.0-48.0) % MCV 98.5 (81.0-99.0) fL MCH 30.3 (26.7-34.0) pg MCHC 30.8 (29.9-35.2) g/dL RDW 12.3 (11.0-15.0) % Plt Count 214 (150-450) 10^3/uL MPV 10.9 (9.5-13.5) fL Neut % (Auto) 76.7 H (43.0-75.0) % Lymph % (Auto) 16.4 L (20.5-60.0) % [place] % (Auto) 3.6 (1.7-12.0) % Eos % (Auto) 2.1 (0.9-7.0) % Baso % (Auto) 0.7 (0.2-2.0) % Neut # (Auto) 8.9 H (1.4-6.5) 10^3/uL Lymph # (Auto) 1.9 (1.2-3.8) 10^3/uL [place] # (Auto) 0.4 (0.3-0.8) 10^3/uL Eos # (Auto) 0.2 (0.0-0.7) 10^3/uL Baso # (Auto) 0.1 (0.0-0.1) 10^3/uL Abs Immat Gran (auto) 0.06 H (0.00-0.03) 10^3/uL Imm/Tot Granulo (auto) 0.5 (0.0-0.5) % Sodium 140 (136-145) mmol/L Potassium 5.6 H 5.5 H (3.5-5.1) mmol/L Chloride 104 (98-107) mmol/L Carbon Dioxide 24.4 (21.0-32.0) mmol/L Anion Gap 17.2 BUN 30.0 H (7.0-18.0) mg/dL Creatinine 0.96 (0.55-1.02) mg/dL Est GFR ( Amer) >60 (>=60) Est GFR (Non-Af Amer) 58 L (>=60) BUN/Creatinine Ratio 31.3 Glucose 204 H (74-106) mg/dL Calcium 9.3 (8.5-10.1) mg/dL Urine Color Lt. yellow (YELLOW) Urine Clarity Clear (CLEAR) Urine pH 6.5 (5.0-9.0) Ur Specific [place] 1.020 (1.005-1.025) Urine Protein 100 A (NEG/TRACE) mg/dL Urine Glucose (UA) Negative (NEGATIVE) mg/dL Urine Ketones Negative (NEGATIVE) mg/dL Urine Occult Blood Negative (NEGATIVE) Urine Nitrite Negative (NEGATIVE) Urine Bilirubin Negative (NEGATIVE) Urine Urobilinogen 0.2 (0.2-1.0) EU/dL Ur Leukocyte Esterase Negative (NEGATIVE) Urine RBC None seen (0-2) #/HPF Urine WBC None seen (NONE SEEN) #/HPF Ur Squamous Epith Cells Few A (NONE/RARE) #/LPF Urine Crystals None seen (None Seen) #/HPF Urine Bacteria Trace A (NONE SEEN) #/HPF Urine Casts None seen (NONE SEEN) #/LPF Urine Mucus None seen (NONE SEEN) Imaging Data lumbar x-rays: Radiologist's impression: ITS Impressions Lumbar Spine X-Ray 03/23/23 10:54 IMPRESSION: No acute fracture. Degenerative disease of the lumbar spine characterized by endplate osteophytes and disc desiccation at L3-L4 level. If symptoms persist, lumbar spine MRI is recommended for further evaluation. Electronically authenticated by: KELLEN CAAL Date: 03/23/2023 11:48 Discharge Plan Discharge Chief Complaint: Urogenital-Female Clinical Impression: Low back pain Patient Disposition: Home, Self-Care Time of Disposition Decision: 12:10 Condition: Good Mode of Transportation: Private Vehicle Prescriptions / Home Meds: New acetaminophen-codeine 300-30 mg tablet 1 tab PO Q6H PRN (Reason: pain) 5 Days Qty: 20 0RF Instructions: Acute Low Back Pain (ED) Additional Instructions: follow-up with your PCP this week for recheck of potassium Stand Alone Forms: Portal Instructions Referrals: JOHN ELLOITT APRN [Primary Care Provider] - 1 week
[2023-03-23 10:40] LABS: Basophils Absolute Auto 0.1 10^3/uL (0.0-0.1); Basophils Percent Auto 0.7 % (0.2-2.0); Eosinophils Absolute Auto 0.2 10^3/uL (0.0-0.7); Eosinophils Percent Auto 2.1 % (0.9-7.0); Hematocrit 39.6 % (36.0-48.0); Hemoglobin 12.2 g/dL (12.0-16.0); Immature Granulocytes Abs Auto 0.06 10^3/uL (0.00-0.03); Immature Granulocytes Pct Auto 0.5 % (0.0-0.5); Lymphocytes Absolute Auto 1.9 10^3/uL (1.2-3.8); Lymphocytes Percent Auto 16.4 % (20.5-60.0); Mean Corpuscular HGB Conc 30.8 g/dL (29.9-35.2); Mean Corpuscular Hemoglobin 30.3 pg (26.7-34.0); Mean Corpuscular Volume 98.5 fL (81.0-99.0); Mean Platelet Volume 10.9 fL (9.5-13.5); Monocytes Absolute Auto 0.4 10^3/uL (0.3-0.8); Monocytes Percent Auto 3.6 % (1.7-12.0); Neutrophils Absolute Auto 8.9 10^3/uL (1.4-6.5); Neutrophils Percent Auto 76.7 % (43.0-75.0); Platelet Count 214 10^3/uL (150-450); Red Blood Count 4.02 10^6/uL (4.20-5.40); Red Cell Distribution Width 12.3 % (11.0-15.0); White Blood Count 11.6 10^3/uL (4.0-11.0)
[2023-03-23 10:42] LABS: Bilirubin Urine NEGATIVE (NEGATIVE); Blood Urine NEGATIVE (NEGATIVE); Clarity Urine CLEAR (CLEAR); Color Urine LT. YELLOW (YELLOW); Glucose Urine UA NEGATIVE (NEGATIVE); Ketones Urine NEGATIVE (NEGATIVE); Leukocyte Esterase Urine NEGATIVE (NEGATIVE); Nitrite Urine NEGATIVE (NEGATIVE); Protein Urine 100 mg/dL (NEG/TRACE); Urobilinogen Urine 0.2 EU/dL (0.2-1.0); pH Urine 6.5 (5.0-9.0)
[2023-03-23 10:49] LABS: Anion Gap 17.2; Calcium 9.3 mg/dL (8.5-10.1); Carbon Dioxide 24.4 mmol/L (21.0-32.0); Chloride 104 mmol/L (98-107); Estimated GFR (African America >60 (>=60); Estimated GFR (Non-African Ame 58 (>=60); Glucose 204 mg/dL (74-106); Potassium 5.6 mmol/L (3.5-5.1); Sodium 140 mmol/L (136-145)
--- NOTE | 2023-03-23 10:54 | XR_ITS ---
The [address] [address] Patient Name: TIGIST BURKETT MRN: [id number] date: 1960 Sex: F Assigned Patient Location: ER Current Patient Location: ER Accession/Order Number: [id number] Exam Date: 03/23/2023 11:05 Report Date: 03/23/2023 11:48 At the request of: BOBBI GRIMALDO Procedure: XR lumbar spine 2-3V EXAM: XR lumbar spine 2-3V HISTORY: atraumatic pain COMPARISON: None. TECHNIQUE: 3 views lumbar spine. FINDINGS: Bones: No radiographic evidence of fracture. Normal vertebral body heights. No aggressive appearing lesion. Alignment: No pathologic listhesis . Mild levoscoliosis of the mid lumbar spine. Degenerative findings: Degenerative disease of the lumbar spine characterized by endplate osteophytes and disc desiccation at L3-L4 level. XR/XR lumbar spine 2-3V IMPRESSION: No acute fracture. Degenerative disease of the lumbar spine characterized by endplate osteophytes and disc desiccation at L3-L4 level. If symptoms persist, lumbar spine MRI is recommended for further evaluation. Electronically authenticated by: KELLEN CAAL Date: 03/23/2023 11:48
[2023-03-23 10:58] LABS: BUN Creatinine Ratio 31.3
[2023-03-23 11:19] LABS: Bacteria Urine TRACE #/HPF (NONE SEEN); RBC Urine NONE SEEN #/HPF (0-2); WBC Urine NONE SEEN #/HPF (NONE SEEN)
[2023-03-23 11:20] LABS: Cast Seen? NONE SEEN #/LPF (NONE SEEN); Crystals Seen? None Seen #/HPF (None Seen); Mucus Urine NONE SEEN (NONE SEEN); Squamous Epithelial Cell Urine FEW #/LPF (NONE/RARE)
[2023-03-23 11:55] LABS: Potassium 5.5 mmol/L (3.5-5.1)
[2023-03-23] MEDS: SODIUM POLYSTYRENE SULFON 15 GM/60 ML ORAL.SUSP KAYEXALATE PO (12:18)
== END 2023-03-23 12:27 | disposition home or self-care (01) ==
PROVIDERS: Emergency Provider Emergency Medicine; PCP Nurse Practitioner Primary Care
DX: M54.50 Low back pain, unspecified (principal); Z87.891 Personal history of nicotine dependence
CPT/HCPCS: 36415; 72100; 80048; 81001; 84132; 85025; 99284